=== PATIENT | male | born 1985 | race Two or more races ===

== ENCOUNTER 2018-07-31 15:14 | Emergency (ER) | payer MEDICAID ==
[~2018-07-31] VITALS: Ht 167.6 cm; Wt 65.8 kg
[2018-07-31] MEDS ORDERED: HYDROCODONE/APAP 5-325MG TABLET ONE (15:44)
[2018-07-31] MEDS ORDERED: HYDROCODONE/APAP 5-325MG TABLET PO ONE (15:45)
--- NOTE | 2018-07-31 16:48 | NUR ---
Crutches dispensed. Pt instructed on proper use of crutches. Patient able to demonstrate correct use of crutches.
[2018-07-31 16:53] VITALS: BP 115/70
== END 2018-07-31 16:54 | disposition home or self-care (01) ==
LOC: ER 15:21
DX: S80.11XA Contusion of right lower leg, initial encounter (principal); L03.115 Cellulitis of right lower limb; F17.200 Nicotine dependence, unspecified, uncomplicated; V23.4XXA Motorcycle driver injured in collision with car, pick-up truck or van in traffic accident, initial encounter; Y93.89 Activity, other specified; Y92.410 Unspecified street and highway as the place of occurrence of the external cause; Y99.8 Other external cause status
CPT/HCPCS: 73590; 73610; A4663